=== PATIENT | male | born 1950 | race Caucasian/White ===

== ENCOUNTER 2020-05-07 12:27 | Emergency (ER) | payer OTHER, MEDICARE ==
[~2020-05-07] VITALS: Ht 180.3 cm; Wt 88.9 kg
[2020-05-07 13:19] LABS: BASOPHILS ABSOLUTE AUTO 0.03 K/mm3 (0.00-0.23); BASOPHILS PERCENT AUTO 0 % (0-2); EOSINOPHILS ABSOLUTE AUTO 0.09 K/mm3 (0.00-0.68); EOSINOPHILS PERCENT AUTO 1 % (0-6); Hematocrit 46.8 % (37.0-53.0); Hemoglobin 15.9 g/dL (13.5-17.5); IMMATURE GRAN ABSOLUTE AUTO 0.06 K/mm3 (0.00-0.10); IMMATURE GRAN PERCENT AUTO 1 % (0-1); LYMPHOCYTES ABSOLUTE AUTO 2.13 K/mm3 (0.84-5.20); LYMPHOCYTES PERCENT AUTO 26 % (21-46); MONOCYTES ABSOLUTE AUTO 0.46 K/mm3 (0.16-1.47); MONOCYTES PERCENT AUTO 6 % (4-13); Mean Corpuscular HGB 32.4 pg (26.0-34.0); Mean Corpuscular Volume 95 fL (80-100); Mean Platelet Volume 10.4 fL (9.1-12.4); NEUTROPHILS PERCENT AUTO 66 % (41-73); Platelet Count 160 K/mm3 (150-400); RDW Coefficient Variation 11.6 % (11.7-14.2); RDW Standard Deviation 40.7 fL (35.1-46.3); Red Blood Cell Count 4.91 M/mm3 (4.30-5.90); White Blood Cell Count 8.27 K/mm3 (4.00-11.30)
[2020-05-07 13:48] LABS: Alanine Aminotransfer (ALT/SGP 23 U/L (12-78); Albumin, Blood 3.9 g/dL (3.4-5.0); Albumin/Globulin Ratio 1.1 (0.8-1.8); Alk Phos 63 U/L (50-136); Anion Gap 7 mmol/L (6-16); Aspartate Aminotrans (AST/SGOT 19 U/L (12-37); Bilirubin, Total 0.7 mg/dL (0.1-1.0); Blood Urea Nitrogen 15 mg/dL (8-24); Bun/Creatinine Ratio 17.5 (12.0-20.0); CO2, Blood 27 mmol/L (21-32); Chloride, Blood 107 mmol/L (98-108); Creatinine, Blood 0.86 mg/dL (0.60-1.20); Globulin, Blood 3.6 g/dL (2.2-4.0); Glomerular Filtration Rate >60 (60-); Glucose, Blood 142 mg/dL (70-99); Potassium, Blood 3.6 mmol/L (3.5-5.5); Sodium, Blood 141 mmol/L (136-145); Total Protein, Blood 7.5 g/dL (6.4-8.2); Troponin I <0.015 ng/mL (0.000-0.040)
== END 2020-05-07 17:00 | disposition home or self-care (01) ==
LOC: ER 12:27
PROVIDERS: Physician Assistant
DX: R55 Syncope and collapse (principal); K80.20 Calculus of gallbladder without cholecystitis without obstruction; K76.89 Other specified diseases of liver; Z87.891 Personal history of nicotine dependence
CPT/HCPCS: 36415; 71046; 76705; 80053; 83690; 83880; 84484; 85025; 93005; 93010; 96361; 96374; 99284-25; J2405; J7120

== ENCOUNTER 2022-04-01 10:15 | Emergency (ER) | payer OTHER ==
[~2022-04-01] VITALS: Ht 180.3 cm; Wt 90.7 kg
[2022-04-01] MEDS ORDERED: PRED20 PO (13:26)
[2022-04-01] MEDS ORDERED: LIDO700A20 TOP (13:26)
[2022-04-01] MEDS ORDERED: CYCL10 PO (13:26)
[2022-04-01] MEDS ORDERED: HYDR1TAB94 PO (13:26)
== END 2022-04-01 13:38 | disposition home or self-care (01) ==
LOC: ER 10:15
DX: M51.16 Intervertebral disc disorders with radiculopathy, lumbar region (principal); Z95.0 Presence of cardiac pacemaker; Z79.899 Other long term (current) drug therapy
CPT/HCPCS: 72100; A9270

== ENCOUNTER 2024-09-16 06:11 | Day surgery (SDC) | payer OTHER ==
[~2024-09-16 06:11] MED LIST: AMOCLA875 PO; BENZ100A PO; CYCL10 PO; HYDR1TAB94 PO; INCLISIRAN SODIUM 284 MG/1.5 ML SYRINGE SC SCH; LACT PO; LIDO700A20 TOP; MULTI-VITAMIN1 EAC2 PO; PRED20 PO; UBID10 PO
[2024-09-16 10:58] VITALS: BP 137/93
== END 2024-09-16 11:02 | disposition home or self-care (01) ==
LOC: ATC 06:11
DX: E78.5 Hyperlipidemia, unspecified (principal); R79.89 Other specified abnormal findings of blood chemistry; Z88.8 Allergy status to other drugs, medicaments and biological substances; Z79.899 Other long term (current) drug therapy
CPT/HCPCS: 96372; J1306

== ENCOUNTER 2025-04-11 01:23 | Day surgery (SDC) | payer OTHER ==
[2025-04-11 07:25] VITALS: BP 168/77
== END 2025-04-11 07:31 | disposition home or self-care (01) ==
LOC: ATC 01:23
DX: E78.5 Hyperlipidemia, unspecified (principal); R79.89 Other specified abnormal findings of blood chemistry; Z88.8 Allergy status to other drugs, medicaments and biological substances; Z87.891 Personal history of nicotine dependence
CPT/HCPCS: 96372; J1306